=== PATIENT | male | born 1970 | race Caucasian/White ===

== ENCOUNTER 2022-04-13 13:30 | Emergency (ER) | payer SELFPAY ==
[~2022-04-13] VITALS: Ht 177.8 cm; Wt 92.6 kg
[2022-04-13 14:13] VITALS: BP 142/101
[2022-04-13] MEDS ORDERED: ZPAK PO (16:22)
[2022-04-13] MEDS ORDERED: MEDDOSEPAK PO (16:22)
[2022-04-13] MEDS ORDERED: PREDNISONE10 MG PO (16:23)
== END 2022-04-13 16:41 | disposition home or self-care (01) | DRG 192 ==
LOC: ED 13:30
DX: J44.9 Chronic obstructive pulmonary disease, unspecified (principal)